=== PATIENT | female | born 1995 | race Caucasian/White ===

== ENCOUNTER 2016-09-21 18:26 | Emergency (ER) | payer OTHER ==
[2016-09-21 19:06] VITALS: BP 105/69
[2016-09-21] MEDS ORDERED: Sulfamethox/Trimethoprim DS 800/160* TAB PO ONE (19:40)
--- NOTE | 2016-09-21 19:41 | UC ---
Complaint Female HPI - HPI Summary HPI Summary: This is an otherwise healthy 21 yo female who presents with a one day history of dysuria and frequency. Denies vaginal discharge or itching. Denies abdominal pain, n/v. No back pain. - History Of Current Complaint Chief Complaint: UCGU Stated Complaint: URINARY Hx Last Menstrual Period: 09/11/16 - Allergies/Home Medications Allergies/Adverse Reactions: Allergies Allergy/AdvReac Type Severity Reaction Status Date / Time SEASONAL Allergy Eyes Uncoded 09/21/16 19:07 Itchy/Swollen/Red/Watery PMH/Surg Hx/FS Hx/Imm Hx Previously Healthy: Yes - Surgical History Surgical History: None - Family History Known Family History: Positive: None - Social History Alcohol Use: Occasionally Substance Use Type: None Smoking Status (MU): Never Smoked Tobacco Review of Systems Constitutional: Negative Skin: Negative Eyes: Negative ENT: Negative Respiratory: Negative Cardiovascular: Negative Gastrointestinal: Negative Genitourinary: Dysuria, Frequency Motor: Negative Neurovascular: Negative Musculoskeletal: Negative Neurological: Negative Psychological: Negative All Other Systems Reviewed And Are Negative: Yes Physical Exam Triage Information Reviewed: Yes Appearance: Well-Appearing Vital Signs: Initial Vital Signs Temp 98.3 F 09/21/16 19:00 Pulse 62 09/21/16 19:00 Resp 18 09/21/16 19:00 BP 105/69 09/21/16 19:00 Pulse Ox 100 09/21/16 19:00 Vital Signs Reviewed: Yes Respiratory: Positive: Chest non-tender, Lungs clear, Normal breath sounds. Negative: Crackles, Rhonchi, Wheezing Cardiovascular: Positive: RRR, No Murmur Abdomen Description: Positive: Nontender, Soft Bowel Sounds: Positive: Present Neurological: Positive: Alert Skin Exam: Normal Skin: Negative: rashes Diagnostics - Laboratory Diagnostic Studies Completed/Ordered: UA - positive for blood, protein and LE Complaint Female Dx - Course Course Of Treatment: This is an otherwise healthy 21 yo female who presents with complaints of dysuria x 1 day. UA positive for LE. Treat for uncomplicated UTI. Patient declines STD testing. - Differential Dx/Diagnosis Differential Diagnosis/HQI/PQRI: Sexually Transmitted Disease, Urinary Tract Infection Provider Diagnoses: Uncomplicated UTI Discharge - Discharge Plan Condition: Stable Disposition: HOME Prescriptions: Sulfamethox/Trimethoprim DS* [Bactrim DS 800/160 TAB*] 1 tab PO BID #5 tab Referrals: Non Staff,Doctor [Primary Care Provider] - If Needed Additional Instructions: Activity: No restrictions Instructions: 1. Please take antibiotic as directed 2. Return if you have continued or new complaints 3. Stay well hydrated
== END 2016-09-21 20:08 | disposition home or self-care (01) ==
LOC: UCCORT 18:26
DX: N39.0 Urinary tract infection, site not specified (principal)
CPT/HCPCS: 81003; 87077; 87086; 87186; 99212; A9270-GY; G0463